=== PATIENT | female | born 1935 | race Caucasian/White ===

== ENCOUNTER 2019-02-08 09:21 | Emergency (ER) | payer MEDICARE ==
[~2019-02-08] VITALS: Ht 157.5 cm; Wt 74.8 kg
--- NOTE | 2019-02-08 09:27 | ER.PDOC ---
General Chief Complaint: Requesting Medical Care Stated Complaint: SOB Time seen by MD: 09:20 Source: patient Exam Limitations: no limitations History of Present Illness Initial Comments 3 days of clear runny nose nasal congestion sore throat and dry cough, patient states no radha or chest pain and she did get her flu shot and pneumonia shot this year, she states she has some sinus pressure Timing/Duration: gradual Severity: mild Associated Symptoms: runny nose, sore throat Allergies: Coded Allergies: No Known Drug Allergies (Verified Allergy, Unknown, 02/08/19) Constitutional: denies fever Respiratory: cough; denies SOB at rest Cardiovascular: denies chest pain, denies palpitations, denies syncope Gastrointestinal: denies abdominal pain, denies diarrhea Genitourinary: denies discharge, denies flank pain Musculoskeletal: denies back pain, denies neck pain Skin: denies rash Physical Exam General Appearance: alert, no distress Eye: eyes nml inspection, lids & conjunct. nml, PERRL Ear: ear nml Nose: rhinorrhea Throat: pharyngeal erythema Neck: lymphadenopathy Respiratory: no resp.distress, breath sounds nml Abdomen: non-tender CVS: reg rate & rhythm, heart sounds nml Skin: color nml, no rash Extremities: non-tender, nml ROM NEURO/PSYCH: oriented x 3, CN's nml as tested, motor nml Results/Orders Results/Orders Orders - CORKY ALEJO MD Influenza A&B (02/08/19 09:26) Strep Screen (02/08/19 09:26) Vital Signs Date Time Temp Pulse Resp B/P (MAP) Pulse Ox O2 Delivery O2 Flow Rate FiO2 02/08/19 09:49 99.1 92 18 155/95 (115) 97 Room Air 02/08/19 09:43 99.1 92 18 02/08/19 09:43 99.1 92 16 97 Laboratory Tests Test 02/08/19 09:44 Influenza Type A Antigen NEGATIVE (NEG) Influenza B Immunofluorescence NEGATIVE (NEG) Group A Streptococcus Screen NEGATIVE (NEGATIVE) Departure Time of Disposition: 10:50 Disposition: 01 HOME, SELF-CARE Impression: Primary Impression: Viral syndrome Condition: Stable Patient Instructions: Viral Infections Referrals: PCP,UNKNOWN (PCP) PRIMARY CARE PROVIDER MARGAUX DAVID MD Additional Instructions: return for any worsening symptoms Duration or Time Spent with Pa: 15 CORKY ALEJO MD Feb 08, 2019 09:27
[2019-02-08 09:43] VITALS: BP 155/95
[2019-02-08 09:49] VITALS: BP 155/95
== END 2019-02-08 11:18 | disposition home or self-care (01) ==
LOC: ER 09:21
DX: B34.9 Viral infection, unspecified (principal)
CPT/HCPCS: 87070; 87804; 87880; 99284